=== PATIENT | female | born 1985 | race Caucasian/White ===

== ENCOUNTER 2018-06-22 19:49 | Emergency (ER) | payer OTHER ==
[2018-06-22 20:21] VITALS: BP 123/87; PULSE 95; RESP 18; TEMP 98.5; O2SAT 99
--- NOTE | 2018-06-22 20:52 | C.PDOC ---
History Of Present Illness 33 y/o female presents to the ER complaining of sore throat which has been present for the past 3 days. Patient states that she took Dayquil and Nyquil without relief. Patient reports that her young daughter was recently diagnosed with viral syndrome.Denies having fever,chills, cough, CP,SOB, nausea, and vomiting. Time Seen by Provider: 06/22/18 19:56 Chief Complaint (Nursing): ENT Problem History Per: Patient History/Exam Limitations: None Onset/Duration Of Symptoms: Days Current Symptoms Are (Timing): Still Present Severity: Moderate Past Medical History Reviewed: Historical Data, Nursing Documentation, Vital Signs Vital Signs: Last Vital Signs Temp 98.5 F 06/22/18 20:08 Pulse 95 H 06/22/18 20:08 Resp 18 06/22/18 20:08 BP 123/87 06/22/18 20:08 Pulse Ox 99 06/22/18 20:08 - Medical History PMH: No Chronic Diseases Surgical History: No Surg Hx Family History: States: No Known Family Hx - Social History Hx Tobacco Use: No Hx Alcohol Use: No Hx Substance Use: No - Immunization History Hx Tetanus Toxoid Vaccination: No Hx Influenza Vaccination: No Review Of Systems Constitutional: Negative for: Fever, Chills, Weakness Eyes: Negative for: Redness ENT: Positive for: Throat Pain Cardiovascular: Negative for: Chest Pain Respiratory: Negative for: Cough, Shortness of Breath Gastrointestinal: Negative for: Nausea, Vomiting, Diarrhea Genitourinary: Negative for: Dysuria, Hematuria Musculoskeletal: Negative for: Back Pain Skin: Negative for: Rash Neurological: Negative for: Weakness, Numbness Physical Exam - Physical Exam Appears: Non-toxic, No Acute Distress Skin: Normal Color, Warm, Dry Head: Atraumatic, Normacephalic Eye(s): bilateral: Normal Inspection Nose: Normal Oral Mucosa: Moist Throat: No Exudate, Other (enlarged tonsils, uvula midline, soft palate symmetrical, patent airway) Cardiovascular: Rhythm Regular Respiratory: Normal Breath Sounds, No Rales, No Rhonchi, No Wheezing, Other (normal inspiratory effort) Neurological/Psych: Oriented x3, Normal Speech ED Course And Treatment O2 Sat by Pulse Oximetry: 99 (RA) Pulse Ox Interpretation: Normal Medical Decision Making Medical Decision Making: Plan: --Amoxicillin PO --Motrin PO --Throat Culture Updates: Patient has been discharged and instructed to follow up with ENT. Disposition Counseled Patient/Family Regarding: Diagnosis, Need For Followup, Rx Given - Disposition Referrals: Jasson Peraza MD [Staff Provider] - Disposition: HOME/ ROUTINE Disposition Time: 20:51 Condition: STABLE Prescriptions: Amoxicillin 500 mg PO TID #21 tablet Ibuprofen [Motrin Tab] 600 mg PO TID #21 tab Instructions: Sore Throat, Adult (DC) Forms: [employer] (Vietnamese) - Clinical Impression Clinical Impression: Acute tonsillitis - PA / DUCK OPERATOR / Resident Statement MD/DO has reviewed & agrees with the documentation as recorded. - Scribe Statement The provider has reviewed the documentation as recorded by the Mala Brown Provider Attestation All medical record entries made by the Mala were at my direction and personally dictated by me. I have reviewed the chart and agree that the record accurately reflects my personal performance of the history, physical exam, medical decision making, and the department course for this patient. I have also personally directed, reviewed, and agree with the discharge instructions and disposition.
[2018-06-22] MEDS ORDERED: Amoxicillin-Clav 500-125 mg Tab PO ONE (20:58)
== END 2018-06-22 21:18 | disposition home or self-care (01) ==
LOC: C.ER 19:49
DX: J03.90 Acute tonsillitis, unspecified (principal)